=== PATIENT | male | born 1990 | race Caucasian/White ===

== ENCOUNTER 2019-12-10 03:48 | Emergency (ER) | payer BC ==
[~2019-12-10] VITALS: Ht 172.7 cm; Wt 75.0 kg
--- NOTE | 2019-12-10 04:36 | PHYS DOC ---
General Adult EDM: Chief Complaint: NAUSEA/VOMITING/DIARRHA HPI: HPI: The history was obtained from the patient. 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 Patient states he has felt intermittently lightheaded over the past week. He states it tends to occur while he is at work and on his feet. However he states it typically resolves quickly. He states this evening his lightheadedness and weakness feeling remained persistent. He does note nausea without vomiting. He states that he has been drinking more water than usual. He states his urine output has been relatively unchanged. He notes that he does take desmopressin 2-3 times a day as needed depending on his urinary output. He does take Solu-Cortef 50 mg twice a day as well. He states that he follows with [facility] for his endocrinology care. He notes that he has history of tumor requiring thyroidectomy. He does take Synthroid daily. Denies any abdominal pain. Denies chest pain or shortness of breath. Denies any syncope. Denies objective fevers. Denies any drug or alcohol use. Does note his family physician recently started him on a new antianxiety medication 2 days ago but he is unsure the name of it. No other complaints. Review of Systems: Review of Systems: Constitutional: Denies fever or chills. [] Eyes: Denies change in visual acuity. [] HENT: Denies nasal congestion or sore throat. [] Respiratory: Denies cough or shortness of breath. [] Cardiovascular: Denies chest pain or edema. [] GI: Denies abdominal pain, nausea, vomiting, bloody stools or diarrhea. [] : Denies dysuria. [] Musculoskeletal: Denies back pain or joint pain. [] Integument: Denies rash. [] Neurologic: Denies headache, focal weakness or sensory changes. [] Endocrine: Positive for polydipsia Lymphatic: Denies swollen glands. [] Psychiatric: Denies depression or anxiety. [] Heart Score: Risk Factors: Risk Factors: DM, Current or recent (<one month) smoker, HTN, HLP, family history of CAD, obesity. Risk Scores: Score 0 - 3: 2.5% MACE over next 6 weeks - Discharge Home Score 4 - 6: 20.3% MACE over next 6 weeks - Admit for Clinical Observation Score 7 - 10: 72.7% MACE over next 6 weeks - Early Invasive Strategies Physical Exam: PE: Constitutional: Well developed, well nourished, no acute distress, non-toxic appearance. [] HENT: Normocephalic, atraumatic, bilateral external ears normal, oropharynx dry, no oral exudates, nose normal. [] Eyes: PERRLA, EOMI, conjunctiva normal, no discharge. [] Neck: Normal range of motion, no tenderness, supple, no stridor. [] Cardiovascular:Heart rate regular rhythm, no murmur [] Lungs & Thorax: Bilateral breath sounds clear to auscultation [] Abdomen: Soft, nontender, nonacute abdomen. No involuntary guarding or rigidity noted. No acute peritonitis. Skin: Warm, dry, no erythema, no rash. [] Back: No tenderness, no CVA tenderness. [] Extremities: No tenderness, no cyanosis, no clubbing, ROM intact, no edema. [] Neurologic: Alert and oriented X 3, normal motor function, normal sensory function, no focal deficits noted. [] Psychologic: Affect normal, judgement normal, mood normal. [] Current Patient Data: Labs: Laboratory Tests Test 12/10/19 04:40 12/10/19 04:43 White Blood Count 11.3 x10^3/uL Red Blood Count 4.76 x10^6/uL Hemoglobin 13.2 g/dL Hematocrit 39.2 % Mean Corpuscular Volume 82 fL Mean Corpuscular Hemoglobin 28 pg Mean Corpuscular Hemoglobin Concent 34 g/dL Red Cell Distribution Width 13.5 % Platelet Count 193 x10^3/uL Neutrophils (%) (Auto) 63 % Lymphocytes (%) (Auto) 28 % Monocytes (%) (Auto) 7 % Eosinophils (%) (Auto) 2 % Basophils (%) (Auto) 1 % Neutrophils # (Auto) 7.1 x10^3/uL Lymphocytes # (Auto) 3.1 x10^3/uL Monocytes # (Auto) 0.8 x10^3/uL Eosinophils # (Auto) 0.2 x10^3/uL Basophils # (Auto) 0.1 x10^3/uL Sodium Level 135 mmol/L Potassium Level 3.2 mmol/L Chloride Level 98 mmol/L Carbon Dioxide Level 29 mmol/L Anion Gap 8 Blood Urea Nitrogen 12 mg/dL Creatinine 1.3 mg/dL Estimated GFR (Cockcroft-Gault) 65.7 BUN/Creatinine Ratio 9 Glucose Level 91 mg/dL Calcium Level 8.7 mg/dL Magnesium Level 2.1 mg/dL Total Bilirubin 0.4 mg/dL Aspartate Amino Transf (AST/SGOT) 26 U/L Alanine Aminotransferase (ALT/SGPT) 39 U/L Alkaline Phosphatase 129 U/L Total Protein 6.9 g/dL Albumin 3.9 g/dL Albumin/Globulin Ratio 1.3 Lipase 68 U/L Urine Collection Type Unknown Urine Color Yellow Urine Clarity Clear Urine pH 5.5 Urine Specific [place] 1.025 Urine Protein Negative mg/dL Urine Glucose (UA) Negative mg/dL Urine Ketones (Stick) Negative mg/dL Urine Blood Negative Urine Nitrite Negative Urine Bilirubin Negative Urine Urobilinogen Dipstick 0.2 mg/dL Urine Leukocyte Esterase Negative Urine RBC Occ /HPF Urine WBC 1-4 /HPF Urine Bacteria Few /HPF Urine Mucus Marked /LPF Current Medications Medications (Trade) Dose Ordered Sig/Anuel Route PRN Reason Start Time Stop Time Status Last Admin Dose Admin Sodium Chloride 1,000 ml @ 1,000 mls/hr 1X ONCE IV 12/10/19 05:30 12/10/19 06:29 UNV EKG: EKG: [] EKG consistent with normal sinus rhythm. Ventricular rate of 75 bpm. [place] normal. Intervals normal. Flipped T waves noted in lead III. Nonspecific EKG. Radiology/Procedures: Radiology/Procedures: [facility] [address] [place] [address] IMAGING REPORT Signed PATIENT: SIMIN STREETER CACCOUNT: [id number] : 1990 LOCATION: ER AGE: 29 SEX: M EXAM STATUS: REG ER ORD. PHYSICIAN: CHIARA LAWTON DO REASON: lightheaded PROCEDURE: CHEST AP ONLY CHEST AP ONLY Clinical Indication: Reason: lightheaded / Spl. Instructions: / History: Comparison: None. Findings: The cardiomediastinal silhouette is normal. Lungs are clear. There is no pneumothorax. No pleural effusion is appreciated. No acute bone abnormality. IMPRESSION: No acute cardiopulmonary process. Electronically signed by: Pradeep Artis MD (12/10/2019 4:57 AM) [facility] DICTATED and SIGNED BY: PRADEEP ARTIS MD DATE: 12/10/19 0457 [] Course & Med Decision Making: Course & Med Decision Making Pertinent Labs and Imaging studies reviewed. (See chart for details) [] Patient is a very pleasant 29-year-old male who presents with chief complaint of concern for dehydration and lightheadedness. Initial vital signs unremarkable. Exam overall reassuring. Basic labs were obtained. Sodium 135. Potassium 3.2. Magnesium within normal limits. Remainder of work-up unremarkable. I do not feel any advanced imaging will yield further diagnostic information. He was given 1 L normal saline bolus. EKG unremarkable. Chest x- ray also unremarkable. I do feel the patient is appropriate for close outpatient monitoring. He will be given a short course of oral potassium. I do not feel electrolyte disturbances require hospitalization. He does have close follow-up with his advertising writer and primary care physician. He does have daily hormone replacement therapy as well as daily steroids. He does feel comfortable going home with follow-up. Return precautions were discussed and understood. Stable for discharge. Filemon Disclaimer: Filemon Disclaimer: This electronic medical record was generated, in whole or in part, using a voice recognition dictation system. Departure Departure Impression: Primary Impression: Hyponatremia Additional Impression: Hypokalemia Disposition: 01 HOME, SELF-CARE Condition: STABLE Referrals: NO PCP (PCP) Patient Instructions: Hypokalemia, Hyponatremia Additional Instructions: Please follow-up with your primary care physician in the next 2 to 3 days. P manas follow-up with your advertising writer early next week. Scripts Potassium Chloride (POTASSIUM CHLORIDE ) 20 Meq Tablet.er 20 MEQ PO BID for SUPPLEMENT for 3 Days, #6 TAB.SR Prov: CHIARA LAWTON DO 12/10/19 Justicifation of Admission Dx: Justifications for Admission: Justification of Admission Dx: N/A CHIARA LAWTON DO Dec 10, 2019 04:35
[2019-12-10 04:48] LABS: BASO # 0.1 x10^3/uL (0.0-0.2); BASO % 1 % (0-3); EOS # 0.2 x10^3/uL (0.0-0.7); EOS % 2 % (0-3); HEMATOCRIT 39.2 % (39.0-53.0); HEMOGLOBIN 13.2 g/dL (13.0-17.5); LYMPH # 3.1 x10^3/uL (1.0-4.8); LYMPH % 28 % (24-48); MEAN CORPUSCULAR HEMOGLOBIN 28 pg (25-35); MEAN CORPUSCULAR HGB CONC 34 g/dL (31-37); MEAN CORPUSCULAR VOLUME 82 fL (79-100); MONO # 0.8 x10^3/uL (0.0-1.1); MONO % 7 % (0-9); NEUT # 7.1 x10^3/uL (1.8-7.7); NEUT % 63 % (31-73); PLATELET COUNT 193 x10^3/uL (140-400); RED BLOOD COUNT 4.76 x10^6/uL (4.30-5.70); RED CELL DISTRIBUTION WIDTH 13.5 % (11.5-14.5); WHITE BLOOD COUNT 11.3 x10^3/uL (4.0-11.0)
--- NOTE | 2019-12-10 05:00 | RAD ---
CHEST AP ONLY Clinical Indication: Reason: lightheaded / Spl. Instructions: / History: Comparison: None. Findings: The cardiomediastinal silhouette is normal. Lungs are clear. There is no pneumothorax. No pleural effusion is appreciated. No acute bone abnormality. IMPRESSION: No acute cardiopulmonary process. Electronically signed by: Pradeep Artis MD (12/10/2019 4:57 AM) [facility]
[2019-12-10 05:01] LABS: BILIRUBIN,URINE NEGATIVE (NEG); CLARITY,URINE CLEAR; COLOR,URINE YELLOW; NITRITE,URINE NEGATIVE (NEG); PH,URINE 5.5 (<5.0-8.0); PROTEIN,URINE NEGATIVE (NEG-TRACE); UROBILINOGEN,URINE 0.2 mg/dL (0.2 mg/dL)
[2019-12-10 05:05] LABS: CALCIUM 8.7 mg/dL (8.5-10.1); CREATININE 1.3 mg/dL (0.7-1.3); GFR 65.7; POTASSIUM 3.2 mmol/L (3.5-5.1)
[2019-12-10 05:10] LABS: ALBUMIN 3.9 g/dL (3.4-5.0); ALBUMIN/GLOBULIN RATIO 1.3 (1.0-1.7); MAGNESIUM 2.1 mg/dL (1.8-2.4); TOTAL BILIRUBIN 0.4 mg/dL (0.2-1.0); TOTAL PROTEIN 6.9 g/dL (6.4-8.2)
[2019-12-10 05:21] LABS: BACTERIA,URINE FEW /HPF (0-FEW); RBC,URINE OCC /HPF (0-2)
[2019-12-10] MEDS ORDERED: POTA20TA4 PO (05:31)
[2019-12-10] MEDS ORDERED: IV NORMAL SALINE 1000ML BAG 1,000 ML IV ONE (06:00)
[2019-12-10 06:22] VITALS: BP 122/80
--- NOTE | 2019-12-10 07:26 | EKG ---
[facility] [address] [place] [address] Test Date: 2019-12-10 Test Time: 04:29:09 Pat Name: SIMIN STREETER Department: Room: Gender: [employer] Supervisor: : 1990 Requested By: CHIARA LAWTON Order Number: [id number] Reading MD: Measurements Intervals [place] Rate: 75 P: 44 IN: 154 QRS: 24 QRSD: 90 T: 8 QT: 396 QTc: 445 Interpretive Statements SINUS RHYTHM R-S TRANSITION ZONE IN V LEADS DISPLACED TO THE RIGHT NO SPECIFIC ECG ABNORMALITIES RI6.02 No previous ECG available for comparison
== END 2019-12-10 06:23 | disposition home or self-care (01) ==
LOC: ER 03:48
DX: E87.1 Hypo-osmolality and hyponatremia (principal); E87.6 Hypokalemia; R42 Dizziness and giddiness; E03.9 Hypothyroidism, unspecified
CPT/HCPCS: 36415; 71045; 80053; 81001; 83690; 83735; 83930; 85025; 93005; 96360; 99285; J7030